=== PATIENT | male | born 1945 | race Hispanic/Latino ===

== ENCOUNTER 2018-10-28 09:04 | Emergency (ER) | payer OTHER ==
--- NOTE | 2018-10-28 11:27 | RAD REPORT ---
EXAM DESCRIPTION: RAD - Chest Pa And Lat (2 Views) - 10/28/2018 11:15 am CLINICAL HISTORY: Fever, sore throat, cough COMPARISON: None. TECHNIQUE: PA and lateral views of the chest were obtained. FINDINGS: The lungs are clear of a focal mass or consolidation. No failure finding. Lung markings ar e mildly prominent but suspected to be baseline. Heart size is normal and central vasculature is wi thin normal limits. No pleural effusion or pneumothorax seen. No acute bone finding. There is bridg ing ossification spanning the thoracic spine. No aortic abnormality. IMPRESSION: No acute cardiopulmonary process. Patient has a mild chronic interstitial lung pattern evident.
--- NOTE | 2018-10-28 12:15 | EDPHYS ---
Physician Documentation [facility] Name: Maxime Dee Age: 73 yrs Sex: Male : 1945 Arrival Date: 10/28/2018 Time: 09:09 Bed 19 Private MD: ED Physician Cuate Davila HPI: 10/28 10:42 This 73 yrs old Male presents to ER via Ambulatory with complaints of Sore pm1 Throat, Congestion, Fever. 10:42 The patient presents with sore throat. The patient describes throat pain as scratchy. pm1 Onset: The symptoms/episode began/occurred 2 week(s) ago. Severity of symptoms: in the emergency department the symptoms are unchanged. Modifying factors: The symptoms are alleviated by nothing, the symptoms are aggravated by swallowing, Patient's oral intake status: good unaware of sick contact. Associated signs and symptoms: Pertinent positives: cough, fever, Sore throat Pertinent negatives chest pain, diarrhea, earache, shortness of breath, vomiting. The patient has not recently seen a physician. Historical: - Allergies: 10:26 No Known Allergies; bp - Home Meds: 10:26 Metformin Oral [Active]; Lopressor Oral [Active]; bp - PMHx: 10:26 Diabetes - NIDDM; Hypertension; High Cholesterol; bp - Immunization history:: Adult Immunizations up to date. - Social history:: Smoking status: Patient/guardian denies using tobacco, Patient/guardian denies using alcohol. - Ebola Screening: : Patient negative for fever greater than or equal to 101.5 degrees Fahrenheit, and additional compatible Ebola Virus Disease symptoms Patient denies exposure to infectious person Patient denies travel to an Ebola-affected area in the 21 days before illness onset No symptoms or risks identified at this time. ROS: 10:42 Eyes: Negative for injury, pain, redness, and discharge. pm1 10:42 Neck: Negative for injury, pain, and swelling, Cardiovascular: Negative for chest pain, palpitations, and edema. 10:42 Abdomen/GI: Negative for abdominal pain, nausea, vomiting, diarrhea, and constipation, Back: Negative for injury and pain, : Negative for injury, bleeding, discharge, and swelling, MS/Extremity: Negative for injury and deformity, Skin: Negative for injury, rash, and discoloration, Neuro: Negative for headache, weakness, numbness, tingling, and seizure. 10:42 Constitutional: Positive for fever, Negative for body aches, poor PO intake. 10:42 ENT: Positive for sore throat, Negative for drainage from ear(s), ear pain, sinus congestion, sinus pain, difficulty swallowing, difficulty handling secretions, hoarseness. 10:42 Respiratory: Positive for cough, Negative for shortness of breath, sputum production, wheezing. Exam: 10:42 Constitutional: This is a well developed, well nourished patient who is awake, alert, pm1 and in no acute distress. Head/Face: Normocephalic, atraumatic. Eyes: Pupils equal round and reactive to light, extra-ocular motions intact. Lids and lashes normal. Conjunctiva and sclera are non-icteric and not injected. Cornea within normal limits. Periorbital areas with no swelling, redness, or edema. ENT: Nares patent. No nasal discharge, no septal abnormalities noted. Tympanic membranes are normal and external auditory canals are clear. Oropharynx with no redness, swelling, or masses, exudates, or evidence of obstruction, uvula midline. Mucous membranes moist. Neck: Trachea midline, no thyromegaly or masses palpated, and no cervical lymphadenopathy. Supple, full range of motion without nuchal rigidity, or vertebral point tenderness. No Meningismus. Chest/axilla: Normal chest wall appearance and motion. Nontender with no deformity. No lesions are appreciated. Cardiovascular: Regular rate and rhythm with a normal S1 and S2. No gallops, murmurs, or rubs. Normal PMI, no JVD. No pulse deficits. Respiratory: Lungs have equal breath sounds bilaterally, clear to auscultation and percussion. No rales, rhonchi or wheezes noted. No increased work of breathing, no retractions or nasal flaring. Abdomen/GI: Soft, non-tender, with normal bowel sounds. No distension or tympany. No guarding or rebound. No evidence of tenderness throughout. Back: No spinal tenderness. No costovertebral tenderness. Full range of motion. Skin: Warm, dry with normal turgor. Normal color with no rashes, no lesions, and no evidence of cellulitis. MS/ Extremity: Pulses equal, no cyanosis. Neurovascular intact. Full, normal range of motion. 10:42 Neuro: Orientation: is normal, Motor: is normal, moves all fours. Vital Signs: 10:07 BP 149 / 73; Pulse 96; Resp 14; Temp 100.5; Pulse Ox 97% ; Weight 86.18 kg; Height 5 bp ft. 7 in. (170.18 cm); 12:00 BP 145 / 71; Pulse 89; Resp 16; Pulse Ox 98% ; bp 10:07 Body Mass Index 29.76 (86.18 kg, 170.18 cm) bp MDM: 10:07 Patient medically screened. pm1 10:44 Data reviewed: vital signs. Data interpreted: Pulse oximetry: on room air is 97 %. pm1 Interpretation: normal. 12:12 Counseling: I had a detailed discussion with the patient and/or guardian regarding: the pm1 historical points, exam findings, and any diagnostic results supporting the discharge/admit diagnosis, lab results, radiology results, the need for outpatient follow up, to return to the emergency department if symptoms worsen or persist or if there are any questions or concerns that arise at home. 10/28 10:09 Order name: Strep; Complete Time: 10:42 pm1 10/28 10:09 Order name: Flu; Complete Time: 10:42 pm1 10/28 10:26 Order name: Chest Pa And Lat (2 Views) XRAY; Complete Time: 11:34 pm1 10/28 10:42 Order name: Throat Culture EDMS Administered Medications: 12:20 Drug: Rocephin (cefTRIAXone) 1 grams Route: IM; Site: right gluteus; bp 12:36 Follow up: Response: No adverse reaction bp Disposition: 14:58 Co-signature as Attending Physician, Cuate Davila MD I agree with the assessment and kdr plan of care. Disposition: 10/28/18 12:14 Discharged to Home. Impression: Acute upper respiratory infection, unspecified. - Condition is Stable. - Discharge Instructions: Upper Respiratory Infection, Adult. - Prescriptions for Zithromax Z- Puneet 250 mg Oral Tablet - take 1 tablet by ORAL route as directed for 5 days Day 1 - take two (2) tablets one time. Day 2, 3, 4 , 5 take one (1) tablet once daily.; 6 tablet. Guaifenesin AC 10- 100 mg/5 mL Oral Liquid - take 10 milliliter by ORAL route every 4 hours As needed; 240 milliliter. - Medication Reconciliation Form, Thank You Letter, Antibiotic Education, Prescription Opioid Use form. - Follow up: Emergency Department; When: As needed; Reason: Worsening of condition. Follow up: Private Physician; When: 2 - 3 days; Reason: Recheck today's complaints, Continuance of care, Re-evaluation by your physician. - Problem is new. - Symptoms have improved. Signatures: Dispatcher [employer] EDMS Cuate Davila MD MD kdr Marinas, Patrick MANAGER DRUG SAFETY MANAGER DRUG SAFETY pm1 Mason Mendez, RN RN bp Corrections: (The following items were deleted from the chart) 12:39 12:14 10/28/2018 12:14 Discharged to Home. Impression: Acute upper respiratory bp infection, unspecified. Condition is Stable. Forms are Medication Reconciliation Form, Thank You Letter, Antibiotic Education, Prescription Opioid Use. Follow up: Emergency Department; When: As needed; Reason: Worsening of condition. Follow up: Private Physician; When: 2 - 3 days; Reason: Recheck today's complaints, Continuance of care, Re-evaluation by your physician. Problem is new. Symptoms have improved. pm1
--- NOTE | 2018-10-28 12:15 | ER ---
Nurse's Notes [facility] Name: Maxime Dee Age: 73 yrs Sex: Male : 1945 Arrival Date: 10/28/2018 Time: 09:09 Bed 19 Private MD: Diagnosis: Acute upper respiratory infection, unspecified Presentation: 10/28 10:07 Presenting complaint: Patient states: 2 WEEKS FEVER AND SORE THROAT. Transition of bp care: patient was not received from another setting of care. Onset of symptoms is unknown. Risk Assessment: Do you want to hurt yourself or someone else? Patient reports no desire to harm self or others. Initial Sepsis Screen: Does the patient meet any 2 criteria? HR > 90 bpm. No. Patient's initial sepsis screen is negative. Does the patient have a suspected source of infection? No. Patient's initial sepsis screen is negative. Care prior to arrival: None. 10:07 Method Of Arrival: Ambulatory bp 10:07 Acuity: MAXIMILIANO 3 bp Triage Assessment: 10:07 General: Appears in no apparent distress. comfortable, Behavior is calm, cooperative, bp appropriate for age. Pain: Complains of pain in THROAT. EENT: Throat is reddened. Neuro: Level of Consciousness is awake, alert, obeys commands, Oriented to person, place, time, situation, Appropriate for age. Cardiovascular: No deficits noted. Respiratory: Airway is patent Respiratory effort is even, unlabored, Respiratory pattern is regular, symmetrical. GI: No signs and/or symptoms were reported involving the gastrointestinal system. : No signs and/or symptoms were reported regarding the genitourinary system. Derm: No deficits noted. Musculoskeletal: Circulation, motion, and sensation intact. Range of motion: intact in all extremities. Historical: - Allergies: 10:26 No Known Allergies; bp - Home Meds: 10:26 Metformin Oral [Active]; Lopressor Oral [Active]; bp - PMHx: 10:26 Diabetes - NIDDM; Hypertension; High Cholesterol; bp - Immunization history:: Adult Immunizations up to date. - Social history:: Smoking status: Patient/guardian denies using tobacco, Patient/guardian denies using alcohol. - Ebola Screening: : Patient negative for fever greater than or equal to 101.5 degrees Fahrenheit, and additional compatible Ebola Virus Disease symptoms Patient denies exposure to infectious person Patient denies travel to an Ebola-affected area in the 21 days before illness onset No symptoms or risks identified at this time. Screenin:30 Abuse screen: Denies threats or abuse. Denies injuries from another. Nutritional bp screening: No deficits noted. Tuberculosis screening: No symptoms or risk factors identified. Fall Risk None identified. Assessment: 10:29 General: SEE TRIAGE NOTE. bp 10:30 Respiratory: Airway is patent Respiratory effort is even, unlabored, Respiratory bp pattern is regular, symmetrical, Breath sounds are clear bilaterally. 12:36 Reassessment: PT D/C HOME AMBULATORY WITH FAMILY, DX WITH ACUTE URI. bp Vital Signs: 10:07 BP 149 / 73; Pulse 96; Resp 14; Temp 100.5; Pulse Ox 97% ; Weight 86.18 kg; Height 5 bp ft. 7 in. (170.18 cm); 12:00 BP 145 / 71; Pulse 89; Resp 16; Pulse Ox 98% ; bp 10:07 Body Mass Index 29.76 (86.18 kg, 170.18 cm) bp ED Course: 09:09 Patient arrived in ED. as 10:05 Ton Iverson NP is PHCP. pm1 10:05 Cuate Davila MD is Attending Physician. pm1 10:07 Arm band placed on. bp 10:08 Mason Mendez, POLY is Primary Nurse. bp 10:25 Triage completed. bp 10:30 Patient has correct armband on for positive identification. Bed in low position. Call bp light in reach. Side rails up X2. Adult w/ patient. 11:14 X-ray completed. Patient tolerated procedure well. Patient moved to radiology via jb2 wheelchair. Patient moved back from radiology. 11:15 Chest Pa And Lat (2 Views) XRAY In Process Unspecified. EDMS 12:37 No provider procedures requiring assistance completed. Patient did not have IV access bp during this emergency room visit. Administered Medications: 12:20 Drug: Rocephin (cefTRIAXone) 1 grams Route: IM; Site: right gluteus; bp 12:36 Follow up: Response: No adverse reaction bp Outcome: 12:14 Discharge ordered by . pm1 12:38 Discharged to home ambulatory, with family. bp 12:38 Condition: stable 12:38 Discharge instructions given to patient, Instructed on discharge instructions, follow up and referral plans. medication usage, Demonstrated understanding of instructions, follow-up care, medications, Prescriptions given X 2. 12:39 Patient left the ED. bp Signatures: Dispatcher [employer] EDDarell Reed Amelia as Marinas, Patrick, SHEET FED PRINTER SHEET FED PRINTER pm1 Mason Mendez, RN RN bp
[2018-10-28] MEDS ORDERED: CEFTRIAXONE 1000 MG/VIAL ONE (12:36)
[2018-10-28] MEDS ORDERED: LIDOCAINE 1% MPF 2 ML AMPULE ONE (12:36)
== END 2018-10-28 12:39 | disposition home or self-care (01) ==
LOC: ER 09:04
DX: J06.9 Acute upper respiratory infection, unspecified (principal); I10 Essential (primary) hypertension; E11.9 Type 2 diabetes mellitus without complications
CPT/HCPCS: 87070; 87081; 87804 ×2; 71046; 96372; 99283; J2001